=== PATIENT | female | born 1970 | race African-American/Black ===

== ENCOUNTER 2018-09-27 15:10 | Inpatient (IN) | payer OTHER ==
[2018-09-27 17:21] VITALS: BMI 44.3
--- NOTE | 2018-09-27 21:25 | HP ---
CIWA Score - Admission Criteria [facility] Guidelines: Admission for Medically Managed Detox: Requires at least one of the followin. CIWA greater than 12 2. Seizures within the past 24 hours 3. Delirium tremens within the past 24 hours 4. Hallucinations within the past 24 hours 5. Acute intervention needed for co occurring medical disorder 6. Acute intervention needed for co occurring psychiatric disorder 7. Severe withdrawal that cannot be handled at a lower level of care (continued vomiting, continued diarrhea, abnormal vital signs) requiring intravenous medication and/or fluids 8. Admission ROS S - HPI Chief Complaint: Seeking admission to Rehab Allergies/Adverse Reactions: Allergies Allergy/AdvReac Type Severity Reaction Status Date / Time Penicillins Allergy Mild Rash Verified 09/27/18 20:27 NSAIDS Allergy Mild Hives Uncoded 09/27/18 20:28 History of Present Illness: 48 years old female is seeking admission to Rehab. This is her first admission to [facility] and first Rehab. She reports past medical history of asthma, seizures and hypertension. She reports suicide attempt in 1988 and denies suicidal ideation at this time. Exam Limitations: No Limitations - Ebola screening Have you traveled outside of the country in the last 21 days: No Have you had contact with anyone from an Ebola affected area: No Have you been sick,other than usual withdrawal symptoms: No - Review of Systems Constitutional: No Symptoms Reported EENT: reports: No Symptoms Reported Respiratory: reports: No Symptoms reported Cardiac: reports: No Symptoms Reported GI: reports: No Symptoms Reported : reports: No Symptoms Reported Musculoskeletal: reports: No Symptoms Reported Integumentary: reports: No Symptoms Reported Neuro: reports: No Symptoms reported Endocrine: reports: No Symptoms Reported Hematology: reports: No Symptoms Reported Psychiatric: reports: No Sypmtoms Reported, Mood/Affect Appropiate, Orientated x3 Other Systems: Reviewed and Negative Patient History - Patient Medical History Hx Asthma: Yes (Albuterol, advair) Hx Chronic Obstructive Pulmonary Disease (COPD): No Hx Cancer: No Hx Cardiac Disorders: No Hx Congestive Heart Failure: No Hx Hypertension: Yes (Coreg) Hx Hypercholesterolemia: No Hx Pacemaker: No HX Cerebrovascular Accident: No Hx Seizures: Yes (Depakote, Gabapentin, Topromax ) Hx Dementia: No Hx Diabetes: No Hx Gastrointestinal Disorders: No Hx Liver Disease: No Hx Genitourinary Disorders: No Hx Sexually Transmitted Disorders: No Hx Renal Disease (ESRD): No Hx Thyroid Disease: No Hx Human Immunodeficiency Virus (HIV): No (Negative June 2018) Hx Hepatitis C: No Hx Depression: Yes (Buspar, Wellbutrin, Zoloft) Hx Suicide Attempt: Yes (1988. Denies suicidal ideation at this time) Hx Bipolar Disorder: Yes Hx Schizophrenia: Yes Other Medical History: Anxiety, PTSD - Buspar, Wellbutrin, Zoloft - Patient Surgical History Past Surgical History: Yes Hx Section: Yes (2013) Other Surgical History: TOSILECTOMY - 2008 Anesthesia Reaction: No - PPD History Previous Implant?: Yes Documented Results: Negative w/o proof Implanted On Prior [facility] Admission?: No PPD to be Administered?: Yes - Reproductive History Patient is a Female of Child Bearing Age (11 -55 yrs old): Yes Last Menstrual Period: 09/13/18 Patient : No - Smoking Cessation Smoking history: Current every day smoker Have you smoked in the past 12 months: Yes Aproximately how many cigarettes per day: 3 Hx Chewing Tobacco Use: No Initiated information on smoking cessation: Yes 'Breaking Loose' booklet given: 09/27/18 - Substance & Tx. History Hx Alcohol Use: No Hx Substance Use: Yes Substance Use Type: Cocaine, Marijuana Hx Substance Use Treatment: No Family Disease History - Family Disease History Family History: Denies Admission Physical Exam BHS - Vital Signs Vital Signs: Vital Signs - 24 hr 09/27/18 17:19 Temperature 97.9 F Pulse Rate 86 Respiratory 18 Rate Blood Pressure 150/60 - Physical General Appearance: Yes: Nourished, Appropriately Dressed HEENTM: Yes: EOMI, Normal ENT Inspection, Normal Voice, RENETTA Respiratory: Yes: Lungs Clear, Normal Breath Sounds, No Respiratory Distress Neck: Yes: Supple Breast: Yes: Breast Exam Deferred Cardiology: Yes: Regular Rhythm, Regular Rate Abdominal: Yes: Normal Bowel Sounds, Soft Genitourinary: Yes: Within Normal Limits Back: Yes: Normal Inspection Musculoskeletal: Yes: Within Normal Limits Extremities: Yes: Normal Inspection Neurological: Yes: athletic trainer II-XII NML intact, Alert, Normal Mood/Affect Integumentary: Yes: Warm Lymphatic: Yes: Within Normal Limits - Diagnostic (1) Marijuana dependence Current Visit: Yes Status: Chronic (2) Cocaine dependence Current Visit: Yes Status: Chronic Qualifiers: Substance use status: uncomplicated Qualified Code(s): F14.20 - Cocaine dependence, uncomplicated (3) Barbiturate abuse Current Visit: Yes Status: Chronic (4) Asthma Current Visit: Yes Status: Chronic Qualifiers: Asthma severity: mild Asthma persistence: intermittent (5) HTN (hypertension) Current Visit: Yes Status: Chronic Qualifiers: Hypertension type: unspecified Qualified Code(s): I10 - Essential (primary ) hypertension (6) Depression Current Visit: Yes Status: Chronic Qualifiers: Depression Type: unspecified Qualified Code(s): F32.9 - Major depressive disorder, single episode, unspecified (7) Anxiety Current Visit: Yes Status: Chronic (8) Seizure Current Visit: Yes Status: Chronic Cleared for Admission [facility] - Detox or Rehab [facility] Level of Care: Observation Bed Claeared for Rehab Admission: Yes [facility] Breath Alcohol Content Breath Alcohol Content: 0 Urine Pregancy Test - Result Urine Test Results: Negative- NO Line Present Urine Drug Screen - Results Drug Screen Negative: No Urine Drug Screen Results: THC-Marijuana, VICKI-Cocaine, BAR-Barbiturates Inpatient Rehab Admission - Initial Determination Are CD services needed?: Yes Free of communicable disease: Yes Not in need of hospitalization: Yes - Rehab Admission Criteria Previous failed treatment: No Poor recovery environment: Yes Comorbidities: Yes Lacks judgement: No Patient is meeting Inpatient Rehab admission criteria:: Yes
[2018-09-27] MEDS ORDERED: MENTHOL/PHENOL 1 EACH UD MM PRN (21:46)
[2018-09-27] MEDS ORDERED: NICOTINE POLACRILEX 2 MG GUM BC PRN (21:46)
[2018-09-27] MEDS ORDERED: P-EPHED 60MG/TRIPROLIDI 2.5MG TABLET PO PRN (21:46)
[2018-09-27] MEDS ORDERED: MAGNESIUM CITRATE 300 ML BOTTLE PO PRN (21:46)
[2018-09-27] MEDS ORDERED: MAG HYDROX/AL HYDROX/SIMETH 30 ML UNIT-DOSE CUP PO PRN (21:46)
[2018-09-27] MEDS ORDERED: MAGNESIUM HYDROX 2400MG/30ML ORAL SUSPENSION 30 ML CUP PO PRN (21:46)
[2018-09-27] MEDS ORDERED: LOPERAMIDE HCL 2 MG CAPSULE PO PRN (21:46)
[2018-09-27] MEDS ORDERED: MELATONIN 5 MG TABLETS PO PRN (22:00)
[2018-09-27] MEDS: DIVALPROEX SODIUM 500 MG TABLET E.C. PO SCH (23:25)
[2018-09-27] MEDS: THIAMINE HCL 100 MG TABLET (FP) PO SCH (23:25)
[2018-09-28 00:55] LABS: URINE APPEARANCE CLEAR; URINE BILIRUBIN NEGATIVE (<2.0 mg/dL); URINE COLOR YELLOW; URINE GLUCOSE (UA) NEGATIVE (NEGATIVE); URINE KETONE NEGATIVE (NEGATIVE); URINE LEUK ESTERASE NEGATIVE (NEGATIVE); URINE NITRITE NEGATIVE (NEGATIVE); URINE PROTEIN NEGATIVE (NEGATIVE)
[2018-09-28] MEDS: GABAPENTIN 400 MG CAPSULE (FP) PO SCH ×2 (11:01→22:35)
[2018-09-28] MEDS: DIVALPROEX SODIUM 500 MG TABLET E.C. PO SCH ×2 (11:01→22:35)
[2018-09-28] MEDS: CARVEDILOL 6.25 MG TABLET (FP) PO SCH (11:01)
[2018-09-28] MEDS: TOPIRAMATE 100 MG TABLET PO SCH ×2 (11:01→22:35)
[2018-09-28] MEDS: PRENATAL VITAMINS W/ FOLIC ACID TABLET (FP) PO SCH (11:01)
[2018-09-28] MEDS: NICOTINE 14 MG/24 HOURS TOPICAL PATCH TD SCH (11:01)
[2018-09-28] MEDS: COLLOIDAL OATMEAL 1 BAR EACH TP PRN (11:03)
[2018-09-28 17:15] LABS: HEMATOCRIT 31.7 % (32.4-45.2); HEMOGLOBIN 10.6 GM/dL (10.7-15.3); MCH 28.9 pg (25.7-33.7); MCHC 33.6 g/dl (32.0-36.0); MEAN PLT VOLUME 8.2 fl (7.5-11.1); PLATELET COUNT 358 K/MM3 (134-434); RBC 3.68 M/mm3 (3.60-5.2); RDW 16.3 % (11.6-15.6); WHITE BLOOD COUNT 6.6 K/mm3 (4.0-10.0)
[2018-09-28 17:33] LABS: ALK PHOS 47 U/L (45-117); ANION GAP 8 MMOL/L (8-16); BILIRUBIN,TOTAL 0.1 mg/dL (0.2-1); BLOOD UREA NITROGEN 11 mg/dL (7-18); CALCIUM 8.4 mg/dL (8.5-10.1); CHLORIDE 110 mmol/L (98-107); CO2 25 mmol/L (21-32); CREATININE 0.9 mg/dL (0.55-1.3); GLUCOSE,RANDOM 107 mg/dL (74-106); POTASSIUM 4.3 mmol/L (3.5-5.1); SGOT/AST 11 U/L (15-37); SGPT/ALT 16 U/L (13-61); SODIUM 142 mmol/L (136-145); TOT PROT 6.2 g/dl (6.4-8.2)
[2018-09-28] MEDS: THIAMINE HCL 100 MG TABLET (FP) PO SCH (22:35)
--- NOTE | 2018-09-29 09:34 | EKG ---
Test Reason : Blood Pressure : / mmHG Vent. Rate : 083 BPM Atrial Rate : 083 BPM P-R Int : 184 ms QRS Dur : 072 ms QT Int : 366 ms P-R-T Axes : 069 058 038 degrees QTc Int : 430 ms NORMAL SINUS RHYTHM POSSIBLE LEFT ATRIAL ENLARGEMENT BORDERLINE ECG NO PREVIOUS ECGS AVAILABLE Confirmed by GEORGE ENRIQUEZ, GUI ([id number]) on 09/29/2018 9:34:25 AM Referred By: Confirmed By:GUI VAZQUEZ MD
[2018-09-29] MEDS: PRENATAL VITAMINS W/ FOLIC ACID TABLET (FP) PO SCH (09:38)
[2018-09-29] MEDS: GABAPENTIN 400 MG CAPSULE (FP) PO SCH ×2 (09:39→21:09)
[2018-09-29] MEDS: DIVALPROEX SODIUM 500 MG TABLET E.C. PO SCH ×2 (09:39→21:09)
[2018-09-29] MEDS: TOPIRAMATE 100 MG TABLET PO SCH ×2 (09:39→21:09)
[2018-09-29] MEDS: NICOTINE 14 MG/24 HOURS TOPICAL PATCH TD SCH (09:39)
[2018-09-29] MEDS: CARVEDILOL 6.25 MG TABLET (FP) PO SCH (09:40)
[2018-09-29] MEDS: MINERAL OIL/PETROLAT/WATER TOPICAL CREAM 113 GM JAR TP SCH ×2 (10:17→21:11)
[2018-09-29] MEDS: THIAMINE HCL 100 MG TABLET (FP) PO SCH (21:09)
[2018-09-30] MEDS: IBUPROFEN 400 MG TABLET (FP) PO PRN (07:05)
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
[2018-09-30] MEDS: MINERAL OIL/PETROLAT/WATER TOPICAL CREAM 113 GM JAR TP SCH ×2 (09:37→21:09)
[2018-09-30] MEDS: PRENATAL VITAMINS W/ FOLIC ACID TABLET (FP) PO SCH (09:37)
[2018-09-30] MEDS: DIVALPROEX SODIUM 500 MG TABLET E.C. PO SCH ×2 (09:37→21:07)
[2018-09-30] MEDS: GABAPENTIN 400 MG CAPSULE (FP) PO SCH ×2 (09:37→21:08)
[2018-09-30] MEDS: TOPIRAMATE 100 MG TABLET PO SCH ×2 (09:37→21:07)
[2018-09-30] MEDS: CARVEDILOL 6.25 MG TABLET (FP) PO SCH (09:38)
[2018-09-30] MEDS ORDERED: buPROPion HCL 100 MG TABLET PO SCH (10:00)
[2018-09-30] MEDS: NICOTINE 14 MG/24 HOURS TOPICAL PATCH TD SCH (10:02)
[2018-09-30] MEDS: FLUoxetine HCL 20 MG CAPSULE (FP) PO SCH (11:02)
[2018-09-30] MEDS ORDERED: PT OWN MED DRAWER 7, Y5N ONE ×2 (11:04→21:07)
[2018-09-30] MEDS ORDERED: ONDANSETRON *ODT* 4 MG TABLET SL PRN (11:39)
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
[2018-09-30] MEDS: THIAMINE HCL 100 MG TABLET (FP) PO SCH (21:09)
[2018-10-01] MEDS: PRENATAL VITAMINS W/ FOLIC ACID TABLET (FP) PO SCH (09:49)
[2018-10-01] MEDS: MINERAL OIL/PETROLAT/WATER TOPICAL CREAM 113 GM JAR TP SCH ×2 (09:49→21:21)
[2018-10-01] MEDS: NICOTINE 14 MG/24 HOURS TOPICAL PATCH TD SCH (09:49)
[2018-10-01] MEDS: DIVALPROEX SODIUM 500 MG TABLET E.C. PO SCH ×2 (09:49→21:19)
[2018-10-01] MEDS: CARVEDILOL 6.25 MG TABLET (FP) PO SCH (09:49)
[2018-10-01] MEDS: TOPIRAMATE 100 MG TABLET PO SCH ×2 (09:49→21:19)
[2018-10-01] MEDS: GABAPENTIN 400 MG CAPSULE (FP) PO SCH ×2 (09:50→21:20)
[2018-10-01] MEDS: FLUoxetine HCL 20 MG CAPSULE (FP) PO SCH (11:00)
[2018-10-01] MEDS: THIAMINE HCL 100 MG TABLET (FP) PO SCH (21:19)
[2018-10-02] MEDS ORDERED: PT OWN MED DRAWER 7, Y5N ONE (08:33)
[2018-10-02] MEDS: MINERAL OIL/PETROLAT/WATER TOPICAL CREAM 113 GM JAR TP SCH ×2 (10:11→21:21)
[2018-10-02] MEDS: DIVALPROEX SODIUM 500 MG TABLET E.C. PO SCH ×2 (10:11→21:21)
[2018-10-02] MEDS: TOPIRAMATE 100 MG TABLET PO SCH ×2 (10:11→21:21)
[2018-10-02] MEDS: CARVEDILOL 6.25 MG TABLET (FP) PO SCH (10:11)
[2018-10-02] MEDS: GABAPENTIN 400 MG CAPSULE (FP) PO SCH ×2 (10:12→21:21)
[2018-10-02] MEDS: PRENATAL VITAMINS W/ FOLIC ACID TABLET (FP) PO SCH (10:12)
[2018-10-02] MEDS: FLUoxetine HCL 20 MG CAPSULE (FP) PO SCH (10:13)
[2018-10-02] MEDS: NICOTINE 14 MG/24 HOURS TOPICAL PATCH TD SCH (10:13)
[2018-10-02] MEDS: THIAMINE HCL 100 MG TABLET (FP) PO SCH (21:22)
[2018-10-03] MEDS: guaiFENesin/D-METHORPHAN HB 10 ML UNIT-DOSE CUPS PO PRN (01:22)
[2018-10-03] MEDS ORDERED: PT OWN MED DRAWER 7, Y5N ONE ×2 (08:02→11:08)
[2018-10-03] MEDS: PRENATAL VITAMINS W/ FOLIC ACID TABLET (FP) PO SCH (10:07)
[2018-10-03] MEDS: GABAPENTIN 400 MG CAPSULE (FP) PO SCH ×2 (10:07→21:04)
[2018-10-03] MEDS: TOPIRAMATE 100 MG TABLET PO SCH ×2 (10:08→21:06)
[2018-10-03] MEDS: NICOTINE 14 MG/24 HOURS TOPICAL PATCH TD SCH (10:09)
[2018-10-03] MEDS: FLUoxetine HCL 20 MG CAPSULE (FP) PO SCH (10:09)
[2018-10-03] MEDS: MINERAL OIL/PETROLAT/WATER TOPICAL CREAM 113 GM JAR TP SCH ×2 (10:10→21:06)
[2018-10-03] MEDS: DIVALPROEX SODIUM 500 MG TABLET E.C. PO SCH ×2 (10:11→21:04)
[2018-10-03] MEDS: CARVEDILOL 6.25 MG TABLET (FP) PO SCH (10:12)
[2018-10-03] MEDS: THIAMINE HCL 100 MG TABLET (FP) PO SCH (21:04)
[2018-10-04] MEDS ORDERED: PT OWN MED DRAWER 7, Y5N ONE (08:37)
[2018-10-04] MEDS: GABAPENTIN 400 MG CAPSULE (FP) PO SCH ×2 (09:42→21:35)
[2018-10-04] MEDS: DIVALPROEX SODIUM 500 MG TABLET E.C. PO SCH ×2 (09:42→21:35)
[2018-10-04] MEDS: FLUoxetine HCL 20 MG CAPSULE (FP) PO SCH (09:43)
[2018-10-04] MEDS: CARVEDILOL 6.25 MG TABLET (FP) PO SCH (09:43)
[2018-10-04] MEDS: PRENATAL VITAMINS W/ FOLIC ACID TABLET (FP) PO SCH (09:43)
[2018-10-04] MEDS: NICOTINE 14 MG/24 HOURS TOPICAL PATCH TD SCH (09:45)
[2018-10-04] MEDS: MINERAL OIL/PETROLAT/WATER TOPICAL CREAM 113 GM JAR TP SCH ×2 (09:45→21:36)
[2018-10-04] MEDS: TOPIRAMATE 100 MG TABLET PO SCH ×2 (10:58→21:35)
[2018-10-04] MEDS: THIAMINE HCL 100 MG TABLET (FP) PO SCH (21:35)
[2018-10-05] MEDS ORDERED: PT OWN MED DRAWER 7, Y5N ONE (08:46)
[2018-10-05] MEDS: CARVEDILOL 6.25 MG TABLET (FP) PO SCH (09:59)
[2018-10-05] MEDS: PRENATAL VITAMINS W/ FOLIC ACID TABLET (FP) PO SCH (09:59)
[2018-10-05] MEDS: FLUoxetine HCL 20 MG CAPSULE (FP) PO SCH (09:59)
[2018-10-05] MEDS: DIVALPROEX SODIUM 500 MG TABLET E.C. PO SCH ×2 (09:59→21:16)
[2018-10-05] MEDS: GABAPENTIN 400 MG CAPSULE (FP) PO SCH ×2 (09:59→21:16)
[2018-10-05] MEDS: TOPIRAMATE 100 MG TABLET PO SCH ×2 (10:00→21:16)
[2018-10-05] MEDS: NICOTINE 14 MG/24 HOURS TOPICAL PATCH TD SCH (10:00)
[2018-10-05] MEDS: MINERAL OIL/PETROLAT/WATER TOPICAL CREAM 113 GM JAR TP SCH ×2 (10:00→21:17)
[2018-10-05] MEDS: ACETAMINOPHEN 325 MG TABLET (FP) PO PRN (15:02)
[2018-10-05] MEDS: THIAMINE HCL 100 MG TABLET (FP) PO SCH (21:16)
[2018-10-06] MEDS: CARVEDILOL 6.25 MG TABLET (FP) PO SCH (09:58)
[2018-10-06] MEDS: DIVALPROEX SODIUM 500 MG TABLET E.C. PO SCH ×2 (09:59→21:34)
[2018-10-06] MEDS: GABAPENTIN 400 MG CAPSULE (FP) PO SCH ×2 (09:59→21:34)
[2018-10-06] MEDS: MINERAL OIL/PETROLAT/WATER TOPICAL CREAM 113 GM JAR TP SCH ×2 (09:59→21:36)
[2018-10-06] MEDS: TOPIRAMATE 100 MG TABLET PO SCH ×2 (10:00→21:34)
[2018-10-06] MEDS: PRENATAL VITAMINS W/ FOLIC ACID TABLET (FP) PO SCH (10:00)
[2018-10-06] MEDS: NICOTINE 14 MG/24 HOURS TOPICAL PATCH TD SCH (10:00)
[2018-10-06] MEDS: FLUoxetine HCL 20 MG CAPSULE (FP) PO SCH (10:00)
--- NOTE | 2018-10-06 13:53 | PN ---
[facility] Progress Note Note: NURSE ESTEPHANIA REPORTS THIS PATIENT REFUSED V/S AND MED COREG. PT ALSO C/O HEAVY MENSTRUAL FLOW WITH CLOTS AND A HX OF FIBROIDS. REPORTS SHE STARTED SINCE TILL NOW. STATES HER NORMAL ROUTINE IS 6 DAY FLOW. PT REPORTS SHE HAS BEEN USING 3 PADS INSIDE A DIAPER DAILY. PT REPORTS HX OF STRESS INCONTINENCE PER NURSING REPORT. PT STATES SHE SAW HER PNP ON 06/28/18 AND WANTS TO FOLLOW UP WITH SAME AFTER DISCHARGE. WARNED SHE IS NOT GOING TO ANY REFERRAL BY US UNTIL SHE GETS OUT. THIS [facility] SALES INFORMED PT THAT SHE WILL BE TAKEN TO THE ED IF THERE IS A NEED FOR SUCH INTERVENTION WHILE SHE IS HERE. Vital Signs - 24 hr 10/06/18 10/06/18 03:30 07:37 Respiratory 18 18 Rate Laboratory Tests 09/27/18 09/28/18 09/28/18 23:33 14:35 14:35 WBC 6.6 RBC 3.68 Hgb 10.6 L Hct 31.7 L MCV 86.0 MCH 28.9 MCHC 33.6 RDW 16.3 H Plt Count 358 MPV 8.2 Sodium 142 Potassium 4.3 Chloride 110 H Carbon Dioxide 25 Anion Gap 8 BUN 11 Creatinine 0.9 Creat Clearance w eGFR > 60 Random Glucose 107 H Calcium 8.4 L Total Bilirubin 0.1 L AST 11 L ALT 16 Alkaline Phosphatase 47 Total Protein 6.2 L Albumin 3.0 L Urine Color Yellow Urine Appearance Clear Urine pH 6.0 Ur Specific [place] 1.030 Urine Protein Negative Urine Glucose (UA) Negative Urine Ketones Negative Urine Blood Negative Urine Nitrite Negative Urine Bilirubin Negative Urine Urobilinogen 2.0 H Ur Leukocyte Esterase Negative Valproic Acid RPR Titer HIV 1&2 Antibody Screen HIV P24 Antigen 09/28/18 09/28/18 09/30/18 14:35 14:35 13:15 WBC RBC Hgb Hct MCV MCH MCHC RDW Plt Count MPV Sodium Potassium Chloride Carbon Dioxide Anion Gap BUN Creatinine Creat Clearance w eGFR Random Glucose Calcium Total Bilirubin AST ALT Alkaline Phosphatase Total Protein Albumin Urine Color Urine Appearance Urine pH Ur Specific [place] Urine Protein Urine Glucose (UA) Urine Ketones Urine Blood Urine Nitrite Urine Bilirubin Urine Urobilinogen Ur Leukocyte Esterase Valproic Acid 53.7 RPR Titer Nonreactive HIV 1&2 Antibody Screen Negative HIV P24 Antigen Negative IMPRESSION;ANEMIA MENORRHAGIA PLAN:MONITOR MENSTRUAL FLOW/REPORT TO NURSE DIRECTED FEOSOL 325 MG PO BID
[2018-10-06] MEDS: FERROUS SO4 325 MG TABLET (FP) PO SCH (17:40)
[2018-10-06] MEDS: THIAMINE HCL 100 MG TABLET (FP) PO SCH (21:34)
[2018-10-07] MEDS: FERROUS SO4 325 MG TABLET (FP) PO SCH ×2 (08:02→17:35)
[2018-10-07] MEDS: FLUoxetine HCL 20 MG CAPSULE (FP) PO SCH (10:18)
[2018-10-07] MEDS: MINERAL OIL/PETROLAT/WATER TOPICAL CREAM 113 GM JAR TP SCH ×2 (10:18→23:03)
[2018-10-07] MEDS: GABAPENTIN 400 MG CAPSULE (FP) PO SCH ×2 (10:18→23:04)
[2018-10-07] MEDS: PRENATAL VITAMINS W/ FOLIC ACID TABLET (FP) PO SCH (10:18)
[2018-10-07] MEDS: CARVEDILOL 6.25 MG TABLET (FP) PO SCH (10:18)
[2018-10-07] MEDS: TOPIRAMATE 100 MG TABLET PO SCH ×2 (10:18→23:04)
[2018-10-07] MEDS: DIVALPROEX SODIUM 500 MG TABLET E.C. PO SCH ×2 (10:18→23:03)
[2018-10-07] MEDS: NICOTINE 14 MG/24 HOURS TOPICAL PATCH TD SCH (10:19)
[2018-10-07] MEDS: THIAMINE HCL 100 MG TABLET (FP) PO SCH (23:04)
[2018-10-08] MEDS: FERROUS SO4 325 MG TABLET (FP) PO SCH ×2 (07:31→17:30)
[2018-10-08] MEDS ORDERED: PT OWN MED DRAWER 7, Y5N ONE (09:12)
[2018-10-08] MEDS: MINERAL OIL/PETROLAT/WATER TOPICAL CREAM 113 GM JAR TP SCH ×2 (10:42→21:24)
[2018-10-08] MEDS: DIVALPROEX SODIUM 500 MG TABLET E.C. PO SCH ×2 (10:43→21:24)
[2018-10-08] MEDS: FLUoxetine HCL 20 MG CAPSULE (FP) PO SCH (10:43)
[2018-10-08] MEDS: PRENATAL VITAMINS W/ FOLIC ACID TABLET (FP) PO SCH (10:43)
[2018-10-08] MEDS: GABAPENTIN 400 MG CAPSULE (FP) PO SCH ×2 (10:43→21:24)
[2018-10-08] MEDS: TOPIRAMATE 100 MG TABLET PO SCH ×2 (10:43→21:24)
[2018-10-08] MEDS: CARVEDILOL 6.25 MG TABLET (FP) PO SCH (10:44)
[2018-10-08] MEDS: NICOTINE 14 MG/24 HOURS TOPICAL PATCH TD SCH (10:44)
[2018-10-08] MEDS: THIAMINE HCL 100 MG TABLET (FP) PO SCH (21:24)
[2018-10-09] MEDS: FERROUS SO4 325 MG TABLET (FP) PO SCH ×2 (07:02→17:25)
[2018-10-09] MEDS: GABAPENTIN 400 MG CAPSULE (FP) PO SCH ×2 (09:59→21:45)
[2018-10-09] MEDS: DIVALPROEX SODIUM 500 MG TABLET E.C. PO SCH ×2 (09:59→21:45)
[2018-10-09] MEDS: PRENATAL VITAMINS W/ FOLIC ACID TABLET (FP) PO SCH (10:00)
[2018-10-09] MEDS: MINERAL OIL/PETROLAT/WATER TOPICAL CREAM 113 GM JAR TP SCH ×2 (10:00→21:46)
[2018-10-09] MEDS: NICOTINE 14 MG/24 HOURS TOPICAL PATCH TD SCH (10:00)
[2018-10-09] MEDS: CARVEDILOL 6.25 MG TABLET (FP) PO SCH (10:00)
[2018-10-09] MEDS: FLUoxetine HCL 20 MG CAPSULE (FP) PO SCH (10:00)
[2018-10-09] MEDS: TOPIRAMATE 100 MG TABLET PO SCH ×2 (10:00→21:45)
[2018-10-09] MEDS: THIAMINE HCL 100 MG TABLET (FP) PO SCH (21:45)
[2018-10-10] MEDS: ACETAMINOPHEN 325 MG TABLET (FP) PO PRN ×3 (00:40→21:24)
[2018-10-10] MEDS: FERROUS SO4 325 MG TABLET (FP) PO SCH ×2 (08:17→17:25)
[2018-10-10] MEDS: PRENATAL VITAMINS W/ FOLIC ACID TABLET (FP) PO SCH (09:54)
[2018-10-10] MEDS: DIVALPROEX SODIUM 500 MG TABLET E.C. PO SCH ×2 (09:54→21:23)
[2018-10-10] MEDS: CARVEDILOL 6.25 MG TABLET (FP) PO SCH (09:54)
[2018-10-10] MEDS: FLUoxetine HCL 20 MG CAPSULE (FP) PO SCH (09:54)
[2018-10-10] MEDS: GABAPENTIN 400 MG CAPSULE (FP) PO SCH ×2 (09:54→21:23)
[2018-10-10] MEDS: TOPIRAMATE 100 MG TABLET PO SCH ×2 (09:55→21:23)
[2018-10-10] MEDS: NICOTINE 14 MG/24 HOURS TOPICAL PATCH TD SCH (09:56)
[2018-10-10] MEDS: MINERAL OIL/PETROLAT/WATER TOPICAL CREAM 113 GM JAR TP SCH ×2 (09:57→21:26)
[2018-10-10] MEDS: THIAMINE HCL 100 MG TABLET (FP) PO SCH (21:25)
[2018-10-11] MEDS: FERROUS SO4 325 MG TABLET (FP) PO SCH ×2 (07:02→21:35)
[2018-10-11] MEDS ORDERED: PT OWN MED DRAWER 7, Y5N ONE ×2 (08:22→09:56)
[2018-10-11] MEDS: CARVEDILOL 6.25 MG TABLET (FP) PO SCH (09:45)
[2018-10-11] MEDS: GABAPENTIN 400 MG CAPSULE (FP) PO SCH ×2 (09:45→21:37)
[2018-10-11] MEDS: FLUoxetine HCL 20 MG CAPSULE (FP) PO SCH (09:45)
[2018-10-11] MEDS: PRENATAL VITAMINS W/ FOLIC ACID TABLET (FP) PO SCH (09:45)
[2018-10-11] MEDS: DIVALPROEX SODIUM 500 MG TABLET E.C. PO SCH ×2 (09:45→21:35)
[2018-10-11] MEDS: TOPIRAMATE 100 MG TABLET PO SCH ×2 (09:45→21:35)
[2018-10-11] MEDS: NICOTINE 14 MG/24 HOURS TOPICAL PATCH TD SCH (09:46)
[2018-10-11] MEDS: ACETAMINOPHEN 325 MG TABLET (FP) PO PRN (09:46)
[2018-10-11] MEDS: MINERAL OIL/PETROLAT/WATER TOPICAL CREAM 113 GM JAR TP SCH ×2 (09:50→21:36)
[2018-10-11] MEDS: THIAMINE HCL 100 MG TABLET (FP) PO SCH (21:35)
[2018-10-12] MEDS: FERROUS SO4 325 MG TABLET (FP) PO SCH ×2 (07:41→17:40)
[2018-10-12] MEDS: DIVALPROEX SODIUM 500 MG TABLET E.C. PO SCH ×2 (09:17→21:27)
[2018-10-12] MEDS: CARVEDILOL 6.25 MG TABLET (FP) PO SCH (09:17)
[2018-10-12] MEDS: PRENATAL VITAMINS W/ FOLIC ACID TABLET (FP) PO SCH (09:17)
[2018-10-12] MEDS: TOPIRAMATE 100 MG TABLET PO SCH ×2 (09:18→21:28)
[2018-10-12] MEDS: NICOTINE 14 MG/24 HOURS TOPICAL PATCH TD SCH (09:18)
[2018-10-12] MEDS: FLUoxetine HCL 20 MG CAPSULE (FP) PO SCH (09:18)
[2018-10-12] MEDS: MINERAL OIL/PETROLAT/WATER TOPICAL CREAM 113 GM JAR TP SCH ×2 (09:18→21:27)
[2018-10-12] MEDS: GABAPENTIN 400 MG CAPSULE (FP) PO SCH ×2 (09:18→21:27)
[2018-10-12 10:57] LABS: ALBUMIN 3.1 g/dl (3.4-5.0); ALK PHOS 43 U/L (45-117); ANION GAP 9 MMOL/L (8-16); BILIRUBIN,TOTAL 0.1 mg/dL (0.2-1); BLOOD UREA NITROGEN 17 mg/dL (7-18); CALCIUM 8.4 mg/dL (8.5-10.1); CHLORIDE 113 mmol/L (98-107); CO2 23 mmol/L (21-32); CREATININE 0.9 mg/dL (0.55-1.3); GLUCOSE,RANDOM 94 mg/dL (74-106); POTASSIUM 3.7 mmol/L (3.5-5.1); SGOT/AST 14 U/L (15-37); SGPT/ALT 17 U/L (13-61); SODIUM 144 mmol/L (136-145); TOT PROT 7.1 g/dl (6.4-8.2)
[2018-10-12 11:13] LABS: BASO % 1.2 % (0-2.0); EOS % 2.2 % (0-4.5); HEMATOCRIT 34.4 % (32.4-45.2); HEMOGLOBIN 10.8 GM/dL (10.7-15.3); LYMPH % 29.1 % (8-40); MCH 27.5 pg (25.7-33.7); MCHC 31.4 g/dl (32.0-36.0); MEAN CELL VOLUME 87.7 fl (80-96); MEAN PLT VOLUME 8.5 fl (7.5-11.1); MONO % 4.5 % (3.8-10.2); PLATELET COUNT 371 K/MM3 (134-434); RBC 3.93 M/mm3 (3.60-5.2); RDW 17.4 % (11.6-15.6)
--- NOTE | 2018-10-12 14:24 | PN ---
[facility] Progress Note Note: LAB REVIEWED. Laboratory Tests 09/27/18 09/28/18 09/28/18 23:33 14:35 14:35 WBC 6.6 RBC 3.68 Hgb 10.6 L Hct 31.7 L MCV 86.0 MCH 28.9 MCHC 33.6 RDW 16.3 H Plt Count 358 MPV 8.2 Absolute Neuts (auto) Neutrophils % Lymphocytes % Monocytes % Eosinophils % Basophils % Nucleated RBC % Sodium 142 Potassium 4.3 Chloride 110 H Carbon Dioxide 25 Anion Gap 8 BUN 11 Creatinine 0.9 Creat Clearance w eGFR > 60 Random Glucose 107 H Calcium 8.4 L Total Bilirubin 0.1 L AST 11 L ALT 16 Alkaline Phosphatase 47 Total Protein 6.2 L Albumin 3.0 L Urine Color Yellow Urine Appearance Clear Urine pH 6.0 Ur Specific [place] 1.030 Urine Protein Negative Urine Glucose (UA) Negative Urine Ketones Negative Urine Blood Negative Urine Nitrite Negative Urine Bilirubin Negative Urine Urobilinogen 2.0 H Ur Leukocyte Esterase Negative Valproic Acid RPR Titer HIV 1&2 Antibody Screen HIV P24 Antigen 09/28/18 09/28/18 09/30/18 14:35 14:35 13:15 WBC RBC Hgb Hct MCV MCH MCHC RDW Plt Count MPV Absolute Neuts (auto) Neutrophils % Lymphocytes % Monocytes % Eosinophils % Basophils % Nucleated RBC % Sodium Potassium Chloride Carbon Dioxide Anion Gap BUN Creatinine Creat Clearance w eGFR Random Glucose Calcium Total Bilirubin AST ALT Alkaline Phosphatase Total Protein Albumin Urine Color Urine Appearance Urine pH Ur Specific [place] Urine Protein Urine Glucose (UA) Urine Ketones Urine Blood Urine Nitrite Urine Bilirubin Urine Urobilinogen Ur Leukocyte Esterase Valproic Acid 53.7 RPR Titer Nonreactive HIV 1&2 Antibody Screen Negative HIV P24 Antigen Negative 10/12/18 10/12/18 09:15 09:15 WBC 9.0 RBC 3.93 Hgb 10.8 Hct 34.4 MCV 87.7 MCH 27.5 MCHC 31.4 L RDW 17.4 H Plt Count 371 MPV 8.5 Absolute Neuts (auto) 5.6 Neutrophils % 63.0 Lymphocytes % 29.1 Monocytes % 4.5 Eosinophils % 2.2 Basophils % 1.2 Nucleated RBC % 0 Sodium 144 Potassium 3.7 Chloride 113 H Carbon Dioxide 23 Anion Gap 9 BUN 17 Creatinine 0.9 Creat Clearance w eGFR > 60 Random Glucose 94 Calcium 8.4 L Total Bilirubin 0.1 L AST 14 L ALT 17 Alkaline Phosphatase 43 L Total Protein 7.1 Albumin 3.1 L Urine Color Urine Appearance Urine pH Ur Specific [place] Urine Protein Urine Glucose (UA) Urine Ketones Urine Blood Urine Nitrite Urine Bilirubin Urine Urobilinogen Ur Leukocyte Esterase Valproic Acid RPR Titer HIV 1&2 Antibody Screen HIV P24 Antigen
[2018-10-12] MEDS: THIAMINE HCL 100 MG TABLET (FP) PO SCH (21:26)
[2018-10-13] MEDS: FERROUS SO4 325 MG TABLET (FP) PO SCH ×2 (07:02→17:39)
[2018-10-13] MEDS ORDERED: PT OWN MED DRAWER 7, Y5N ONE ×3 (08:34→21:30)
[2018-10-13] MEDS: TOPIRAMATE 100 MG TABLET PO SCH ×2 (09:54→21:27)
[2018-10-13] MEDS: MINERAL OIL/PETROLAT/WATER TOPICAL CREAM 113 GM JAR TP SCH ×2 (09:54→21:28)
[2018-10-13] MEDS: PRENATAL VITAMINS W/ FOLIC ACID TABLET (FP) PO SCH (09:55)
[2018-10-13] MEDS: CARVEDILOL 6.25 MG TABLET (FP) PO SCH (09:55)
[2018-10-13] MEDS: FLUoxetine HCL 20 MG CAPSULE (FP) PO SCH (09:55)
[2018-10-13] MEDS: DIVALPROEX SODIUM 500 MG TABLET E.C. PO SCH ×2 (09:55→21:27)
[2018-10-13] MEDS: GABAPENTIN 400 MG CAPSULE (FP) PO SCH ×2 (09:55→21:27)
[2018-10-13] MEDS: NICOTINE 14 MG/24 HOURS TOPICAL PATCH TD SCH (09:56)
[2018-10-13] MEDS: COLLOIDAL OATMEAL 1 BAR EACH TP PRN (19:38)
[2018-10-13] MEDS: THIAMINE HCL 100 MG TABLET (FP) PO SCH (21:27)
[2018-10-13] MEDS: ACETAMINOPHEN 325 MG TABLET (FP) PO PRN (21:29)
[2018-10-14] MEDS: FERROUS SO4 325 MG TABLET (FP) PO SCH ×2 (07:00→17:40)
[2018-10-14] MEDS: CARVEDILOL 6.25 MG TABLET (FP) PO SCH (09:53)
[2018-10-14] MEDS: PRENATAL VITAMINS W/ FOLIC ACID TABLET (FP) PO SCH (09:53)
[2018-10-14] MEDS: DIVALPROEX SODIUM 500 MG TABLET E.C. PO SCH ×2 (09:53→21:21)
[2018-10-14] MEDS: TOPIRAMATE 100 MG TABLET PO SCH ×2 (09:53→21:21)
[2018-10-14] MEDS: FLUoxetine HCL 20 MG CAPSULE (FP) PO SCH (09:53)
[2018-10-14] MEDS: GABAPENTIN 400 MG CAPSULE (FP) PO SCH ×2 (09:53→21:21)
[2018-10-14] MEDS: NICOTINE 14 MG/24 HOURS TOPICAL PATCH TD SCH (09:54)
[2018-10-14] MEDS: MINERAL OIL/PETROLAT/WATER TOPICAL CREAM 113 GM JAR TP SCH ×2 (09:54→21:30)
--- NOTE | 2018-10-14 13:11 | PN ---
[facility] Progress Note Note: Psychiatric nurse practitioner note: Call received by RN stating patient was leaving AMA. Upon approach patient was calm and cooperative. Patient reported feeling frustrated about spending the holiday in rehab. She also reports having a FEPT voucher for housing but stated the facility does not assist a patient in locating housing after discharge. Patient was contemplating signing out of rehab but has decided to stay on the unit and continue rehab after encouragement from technical writer. Patient reports compliance with attending and participating in groups. She is also compliant with her medication regimen. Patient receptive and satisfied to feedback. Patient to remain in rehab.
[2018-10-14] MEDS: THIAMINE HCL 100 MG TABLET (FP) PO SCH (21:20)
[2018-10-14] MEDS ORDERED: PT OWN MED DRAWER 7, Y5N ONE (21:24)
[2018-10-15] MEDS: FERROUS SO4 325 MG TABLET (FP) PO SCH ×2 (07:43→17:40)
[2018-10-15] MEDS ORDERED: PT OWN MED DRAWER 7, Y5N ONE (08:20)
[2018-10-15] MEDS: CARVEDILOL 6.25 MG TABLET (FP) PO SCH (10:00)
[2018-10-15] MEDS: FLUoxetine HCL 20 MG CAPSULE (FP) PO SCH (10:00)
[2018-10-15] MEDS: TOPIRAMATE 100 MG TABLET PO SCH ×2 (10:00→21:16)
[2018-10-15] MEDS: DIVALPROEX SODIUM 500 MG TABLET E.C. PO SCH ×2 (10:00→21:16)
[2018-10-15] MEDS: GABAPENTIN 400 MG CAPSULE (FP) PO SCH ×2 (10:00→21:16)
[2018-10-15] MEDS: NICOTINE 14 MG/24 HOURS TOPICAL PATCH TD SCH (10:01)
[2018-10-15] MEDS: PRENATAL VITAMINS W/ FOLIC ACID TABLET (FP) PO SCH (10:02)
[2018-10-15] MEDS: MINERAL OIL/PETROLAT/WATER TOPICAL CREAM 113 GM JAR TP SCH ×2 (10:02→21:18)
[2018-10-15] MEDS: ACETAMINOPHEN 325 MG TABLET (FP) PO PRN (18:47)
[2018-10-15] MEDS: THIAMINE HCL 100 MG TABLET (FP) PO SCH (21:16)
[2018-10-16] MEDS: FERROUS SO4 325 MG TABLET (FP) PO SCH ×2 (08:06→18:10)
[2018-10-16] MEDS: MINERAL OIL/PETROLAT/WATER TOPICAL CREAM 113 GM JAR TP SCH ×2 (09:48→22:53)
[2018-10-16] MEDS: TOPIRAMATE 100 MG TABLET PO SCH ×2 (09:48→21:54)
[2018-10-16] MEDS: GABAPENTIN 400 MG CAPSULE (FP) PO SCH ×2 (09:48→21:54)
[2018-10-16] MEDS: DIVALPROEX SODIUM 500 MG TABLET E.C. PO SCH ×2 (09:49→21:54)
[2018-10-16] MEDS: PRENATAL VITAMINS W/ FOLIC ACID TABLET (FP) PO SCH (09:49)
[2018-10-16] MEDS: FLUoxetine HCL 20 MG CAPSULE (FP) PO SCH (09:49)
[2018-10-16] MEDS: CARVEDILOL 6.25 MG TABLET (FP) PO SCH (09:50)
[2018-10-16] MEDS: NICOTINE 14 MG/24 HOURS TOPICAL PATCH TD SCH (09:50)
[2018-10-16] MEDS: THIAMINE HCL 100 MG TABLET (FP) PO SCH (21:54)
[2018-10-17] MEDS: IBUPROFEN 400 MG TABLET (FP) PO PRN (01:27)
[2018-10-17] MEDS: FERROUS SO4 325 MG TABLET (FP) PO SCH ×2 (07:49→18:35)
[2018-10-17] MEDS: GABAPENTIN 400 MG CAPSULE (FP) PO SCH ×2 (10:17→21:08)
[2018-10-17] MEDS: TOPIRAMATE 100 MG TABLET PO SCH ×2 (10:17→21:09)
[2018-10-17] MEDS: PRENATAL VITAMINS W/ FOLIC ACID TABLET (FP) PO SCH (10:17)
[2018-10-17] MEDS: FLUoxetine HCL 20 MG CAPSULE (FP) PO SCH (10:17)
[2018-10-17] MEDS: DIVALPROEX SODIUM 500 MG TABLET E.C. PO SCH ×2 (10:17→21:08)
[2018-10-17] MEDS: MINERAL OIL/PETROLAT/WATER TOPICAL CREAM 113 GM JAR TP SCH ×2 (10:18→21:09)
[2018-10-17] MEDS: NICOTINE 14 MG/24 HOURS TOPICAL PATCH TD SCH (10:19)
[2018-10-17] MEDS: CARVEDILOL 6.25 MG TABLET (FP) PO SCH (10:19)
[2018-10-17] MEDS: THIAMINE HCL 100 MG TABLET (FP) PO SCH (21:09)
[2018-10-17] MEDS: COLLOIDAL OATMEAL 1 BAR EACH TP PRN (22:16)
[2018-10-18] MEDS: FERROUS SO4 325 MG TABLET (FP) PO SCH ×2 (08:15→17:55)
[2018-10-18] MEDS: COLLOIDAL OATMEAL 1 BAR EACH TP PRN (09:59)
[2018-10-18] MEDS: CARVEDILOL 6.25 MG TABLET (FP) PO SCH (10:00)
[2018-10-18] MEDS: FLUoxetine HCL 20 MG CAPSULE (FP) PO SCH (10:00)
[2018-10-18] MEDS: IBUPROFEN 400 MG TABLET (FP) PO PRN ×2 (10:00→20:17)
[2018-10-18] MEDS: DIVALPROEX SODIUM 500 MG TABLET E.C. PO SCH ×2 (10:00→21:11)
[2018-10-18] MEDS: TOPIRAMATE 100 MG TABLET PO SCH ×2 (10:00→21:11)
[2018-10-18] MEDS: PRENATAL VITAMINS W/ FOLIC ACID TABLET (FP) PO SCH (10:00)
[2018-10-18] MEDS: GABAPENTIN 400 MG CAPSULE (FP) PO SCH ×2 (10:00→21:11)
[2018-10-18] MEDS: MINERAL OIL/PETROLAT/WATER TOPICAL CREAM 113 GM JAR TP SCH ×2 (10:00→21:12)
[2018-10-18] MEDS: NICOTINE 14 MG/24 HOURS TOPICAL PATCH TD SCH (10:00)
[2018-10-18] MEDS ORDERED: PT OWN MED DRAWER 7, Y5N ONE (15:20)
[2018-10-18] MEDS: THIAMINE HCL 100 MG TABLET (FP) PO SCH (21:11)
[2018-10-19] MEDS: FERROUS SO4 325 MG TABLET (FP) PO SCH ×2 (08:10→17:50)
[2018-10-19] MEDS ORDERED: PT OWN MED DRAWER 7, Y5N ONE (08:25)
[2018-10-19] MEDS: MINERAL OIL/PETROLAT/WATER TOPICAL CREAM 113 GM JAR TP SCH ×2 (10:16→21:38)
[2018-10-19] MEDS: FLUoxetine HCL 20 MG CAPSULE (FP) PO SCH (10:16)
[2018-10-19] MEDS: TOPIRAMATE 100 MG TABLET PO SCH ×2 (10:17→21:04)
[2018-10-19] MEDS: DIVALPROEX SODIUM 500 MG TABLET E.C. PO SCH ×2 (10:17→21:04)
[2018-10-19] MEDS: GABAPENTIN 400 MG CAPSULE (FP) PO SCH ×2 (10:17→21:04)
[2018-10-19] MEDS: PRENATAL VITAMINS W/ FOLIC ACID TABLET (FP) PO SCH (10:17)
[2018-10-19] MEDS: NICOTINE 14 MG/24 HOURS TOPICAL PATCH TD SCH (10:18)
[2018-10-19] MEDS: CARVEDILOL 6.25 MG TABLET (FP) PO SCH (10:18)
[2018-10-19] MEDS: IBUPROFEN 400 MG TABLET (FP) PO PRN (11:47)
[2018-10-19] MEDS: THIAMINE HCL 100 MG TABLET (FP) PO SCH (21:04)
[2018-10-19] MEDS: COLLOIDAL OATMEAL 1 BAR EACH TP PRN (21:07)
[2018-10-20] MEDS: FERROUS SO4 325 MG TABLET (FP) PO SCH ×2 (07:51→17:35)
[2018-10-20] MEDS: FLUoxetine HCL 20 MG CAPSULE (FP) PO SCH (09:37)
[2018-10-20] MEDS: TOPIRAMATE 100 MG TABLET PO SCH ×2 (09:37→21:20)
[2018-10-20] MEDS: PRENATAL VITAMINS W/ FOLIC ACID TABLET (FP) PO SCH (09:37)
[2018-10-20] MEDS: MINERAL OIL/PETROLAT/WATER TOPICAL CREAM 113 GM JAR TP SCH ×2 (09:37→21:19)
[2018-10-20] MEDS: DIVALPROEX SODIUM 500 MG TABLET E.C. PO SCH ×2 (09:37→21:19)
[2018-10-20] MEDS: GABAPENTIN 400 MG CAPSULE (FP) PO SCH ×2 (09:37→21:20)
[2018-10-20] MEDS: NICOTINE 14 MG/24 HOURS TOPICAL PATCH TD SCH (09:38)
[2018-10-20] MEDS: CARVEDILOL 6.25 MG TABLET (FP) PO SCH (09:39)
[2018-10-20] MEDS: THIAMINE HCL 100 MG TABLET (FP) PO SCH (21:20)
[2018-10-21] MEDS: FERROUS SO4 325 MG TABLET (FP) PO SCH ×2 (07:44→18:03)
[2018-10-21] MEDS ORDERED: PT OWN MED DRAWER 7, Y5N ONE (08:50)
[2018-10-21] MEDS: MINERAL OIL/PETROLAT/WATER TOPICAL CREAM 113 GM JAR TP SCH ×2 (09:58→21:33)
[2018-10-21] MEDS: FLUoxetine HCL 20 MG CAPSULE (FP) PO SCH (09:59)
[2018-10-21] MEDS: PRENATAL VITAMINS W/ FOLIC ACID TABLET (FP) PO SCH (09:59)
[2018-10-21] MEDS: TOPIRAMATE 100 MG TABLET PO SCH ×2 (09:59→21:32)
[2018-10-21] MEDS: DIVALPROEX SODIUM 500 MG TABLET E.C. PO SCH ×2 (09:59→21:32)
[2018-10-21] MEDS: GABAPENTIN 400 MG CAPSULE (FP) PO SCH ×2 (09:59→21:32)
[2018-10-21] MEDS: COLLOIDAL OATMEAL 1 BAR EACH TP PRN ×2 (10:00→18:04)
[2018-10-21] MEDS: NICOTINE 14 MG/24 HOURS TOPICAL PATCH TD SCH (10:01)
[2018-10-21] MEDS: CARVEDILOL 6.25 MG TABLET (FP) PO SCH (10:02)
[2018-10-21] MEDS: ACETAMINOPHEN 325 MG TABLET (FP) PO PRN ×2 (10:19→23:53)
[2018-10-21] MEDS: THIAMINE HCL 100 MG TABLET (FP) PO SCH (21:32)
[2018-10-22] MEDS: FERROUS SO4 325 MG TABLET (FP) PO SCH ×2 (07:34→17:30)
[2018-10-22] MEDS ORDERED: PT OWN MED DRAWER 7, Y5N ONE ×3 (09:26→13:08)
[2018-10-22] MEDS: CARVEDILOL 6.25 MG TABLET (FP) PO SCH (10:02)
[2018-10-22] MEDS: MINERAL OIL/PETROLAT/WATER TOPICAL CREAM 113 GM JAR TP SCH ×2 (10:02→21:12)
[2018-10-22] MEDS: FLUoxetine HCL 20 MG CAPSULE (FP) PO SCH (10:02)
[2018-10-22] MEDS: DIVALPROEX SODIUM 500 MG TABLET E.C. PO SCH ×2 (10:02→21:10)
[2018-10-22] MEDS: PRENATAL VITAMINS W/ FOLIC ACID TABLET (FP) PO SCH (10:02)
[2018-10-22] MEDS: GABAPENTIN 400 MG CAPSULE (FP) PO SCH ×2 (10:02→21:09)
[2018-10-22] MEDS: NICOTINE 14 MG/24 HOURS TOPICAL PATCH TD SCH (10:03)
[2018-10-22] MEDS: TOPIRAMATE 100 MG TABLET PO SCH ×2 (10:03→21:09)
[2018-10-22] MEDS: COLLOIDAL OATMEAL 1 BAR EACH TP PRN (13:10)
[2018-10-22] MEDS: THIAMINE HCL 100 MG TABLET (FP) PO SCH (21:12)
[2018-10-23] MEDS: FERROUS SO4 325 MG TABLET (FP) PO SCH ×2 (07:06→17:30)
[2018-10-23] MEDS: DIVALPROEX SODIUM 500 MG TABLET E.C. PO SCH ×2 (09:49→21:28)
[2018-10-23] MEDS: TOPIRAMATE 100 MG TABLET PO SCH ×2 (09:49→21:28)
[2018-10-23] MEDS: PRENATAL VITAMINS W/ FOLIC ACID TABLET (FP) PO SCH (09:49)
[2018-10-23] MEDS: NICOTINE 14 MG/24 HOURS TOPICAL PATCH TD SCH (09:49)
[2018-10-23] MEDS: GABAPENTIN 400 MG CAPSULE (FP) PO SCH ×2 (09:49→21:29)
[2018-10-23] MEDS: MINERAL OIL/PETROLAT/WATER TOPICAL CREAM 113 GM JAR TP SCH ×2 (09:51→21:40)
[2018-10-23] MEDS: CARVEDILOL 6.25 MG TABLET (FP) PO SCH (09:51)
[2018-10-23] MEDS ORDERED: PT OWN MED DRAWER 7, Y5N ONE (10:12)
[2018-10-23] MEDS: FLUoxetine HCL 20 MG CAPSULE (FP) PO SCH (10:19)
[2018-10-23] MEDS: COLLOIDAL OATMEAL 1 BAR EACH TP PRN (19:30)
[2018-10-23] MEDS: THIAMINE HCL 100 MG TABLET (FP) PO SCH (21:28)
[2018-10-23] MEDS: IBUPROFEN 400 MG TABLET (FP) PO PRN (21:30)
[2018-10-24] MEDS: FERROUS SO4 325 MG TABLET (FP) PO SCH ×2 (07:00→17:30)
[2018-10-24] MEDS: NICOTINE 14 MG/24 HOURS TOPICAL PATCH TD SCH (09:50)
[2018-10-24] MEDS: GABAPENTIN 400 MG CAPSULE (FP) PO SCH ×2 (09:50→21:26)
[2018-10-24] MEDS: MINERAL OIL/PETROLAT/WATER TOPICAL CREAM 113 GM JAR TP SCH ×2 (09:50→21:28)
[2018-10-24] MEDS: PRENATAL VITAMINS W/ FOLIC ACID TABLET (FP) PO SCH (09:51)
[2018-10-24] MEDS: FLUoxetine HCL 20 MG CAPSULE (FP) PO SCH (09:51)
[2018-10-24] MEDS: DIVALPROEX SODIUM 500 MG TABLET E.C. PO SCH ×2 (09:51→21:26)
[2018-10-24] MEDS: TOPIRAMATE 100 MG TABLET PO SCH ×2 (09:51→21:26)
[2018-10-24] MEDS: IBUPROFEN 400 MG TABLET (FP) PO PRN (09:52)
[2018-10-24] MEDS: CARVEDILOL 6.25 MG TABLET (FP) PO SCH (09:53)
[2018-10-24] MEDS ORDERED: PT OWN MED DRAWER 7, Y5N ONE (21:01)
[2018-10-24] MEDS: guaiFENesin/D-METHORPHAN HB 10 ML UNIT-DOSE CUPS PO PRN (21:26)
[2018-10-24] MEDS: THIAMINE HCL 100 MG TABLET (FP) PO SCH (21:26)
[2018-10-25] MEDS: guaiFENesin/D-METHORPHAN HB 10 ML UNIT-DOSE CUPS PO PRN (03:20)
[2018-10-25 07:04] VITALS: TEMP 98.5
[2018-10-25] MEDS: FERROUS SO4 325 MG TABLET (FP) PO SCH (07:58)
[2018-10-25] MEDS: DIVALPROEX SODIUM 500 MG TABLET E.C. PO SCH (09:11)
[2018-10-25] MEDS: GABAPENTIN 400 MG CAPSULE (FP) PO SCH (09:11)
[2018-10-25] MEDS: CARVEDILOL 6.25 MG TABLET (FP) PO SCH (09:11)
[2018-10-25] MEDS: TOPIRAMATE 100 MG TABLET PO SCH (09:12)
[2018-10-25] MEDS: PRENATAL VITAMINS W/ FOLIC ACID TABLET (FP) PO SCH (09:12)
[2018-10-25] MEDS: FLUoxetine HCL 20 MG CAPSULE (FP) PO SCH (09:12)
[2018-10-25 09:15] VITALS: BP 107/72; PULSE 91
--- NOTE | 2018-10-25 09:15 | PN ---
[facility] Progress Note Note: PT COMPLETED REHAB AND DISCHARGING TODAY. ALERT O X 3. PT WILL BE FOLLOWING UP WITH HER PMD, DR WADE AT [facility]. COURTESY RX FOR COREG 6.25 MG PO DAILY SENT TO HER [facility]. Vital Signs 10/25/18 07:04 Temperature 98.5 F Pulse Rate 71 Respiratory 18 Rate Blood Pressure 100/68 NAD PLAN:D/C TODAY F/U WITH PCP ABOVE.
--- NOTE | 2018-10-25 09:35 | PN ---
[facility] Progress Note Note: Patient has completed this program today and she is referred to [facility] at [address] [place] [id number]. Scripts for 30 days supply of Buspar 15 mg po BID and Prozac 20 mg po daily are electronically transmitted to [facility] at [address] [place] [address]
[2018-10-25] MEDS: MINERAL OIL/PETROLAT/WATER TOPICAL CREAM 113 GM JAR TP SCH (09:39)
[2018-10-25] MEDS: NICOTINE 14 MG/24 HOURS TOPICAL PATCH TD SCH (09:39)
== END 2018-10-25 09:45 | disposition home or self-care (01) | DRG 772 ==
LOC: YASAS 15:10 → Y3E 20:50
PROVIDERS: ADMIT Psychiatry & Neurology Psychiatry; ATTEND Psychiatry & Neurology Psychiatry
PROC: HZ42ZZZ Group Counseling for Substance Abuse Treatment, Cognitive-Behavioral (ICD-10-PCS; principal; 2018-10-11)
DX: F14.20 Cocaine dependence, uncomplicated (principal); F12.20 Cannabis dependence, uncomplicated; F31.0 Bipolar disorder, current episode hypomanic; F17.210 Nicotine dependence, cigarettes, uncomplicated; F39 Unspecified mood [affective] disorder; F43.10 Post-traumatic stress disorder, unspecified; F31.9 Bipolar disorder, unspecified; F20.9 Schizophrenia, unspecified; I10 Essential (primary) hypertension; J45.909 Unspecified asthma, uncomplicated; R56.9 Unspecified convulsions; Z86.69 Personal history of other diseases of the nervous system and sense organs; Z91.5 Personal history of self-harm; Z88.0 Allergy status to penicillin; Z88.8 Allergy status to other drugs, medicaments and biological substances
CPT/HCPCS: 36415; 80053; 80164; 81003; 85025; 85027; 86593; 87389; 93005; 93010